=== PATIENT | female | born 1995 | race American Indian/Alaskan Native ===

== ENCOUNTER 2021-04-17 15:21 | Inpatient (IN) | payer MEDICAID ==
[2021-04-17] MEDS ORDERED: OXYTOCIN 10 UNIT/1 ML INJ IM PRN (18:37)
[2021-04-17] MEDS ORDERED: LIDOCAINE (2%) 20 MG/1 ML VIAL 20 ML MDV INFILTRATI ONE (18:37)
[2021-04-17] MEDS ORDERED: LOPERAMIDE 2 MG CAP PO PRN (18:37)
[2021-04-17] MEDS ORDERED: MINERAL OIL 30 ML ORAL LIQD PO PRN (18:37)
[2021-04-17] MEDS ORDERED: miSOPROStol 200 MCG TAB PR PRN (18:37)
[2021-04-17] MEDS ORDERED: CARBOPROST TROMETHAMINE 250 MCG/1 ML INJ IM PRN (18:37)
[2021-04-17] MEDS ORDERED: ePHEDrine SULFATE 50 MG/1 ML INJ IV PRN (18:37)
[2021-04-17] MEDS ORDERED: TERBUTALINE 1 MG/1 ML INJ SUB-Q PRN (18:37)
[2021-04-17] MEDS ORDERED: METHYLERGONOVINE MALEATE 0.2 MG/ML VIAL IM PRN (18:37)
[2021-04-17] MEDS ORDERED: BUTORPHANOL 2 MG/1 ML INJ IV PRN ×2 (18:44)
[2021-04-17] MEDS ORDERED: PROMETHAZINE 25 MG RECT SUPP PR PRN (18:44)
[2021-04-17] MEDS ORDERED: DINOPROSTONE 10 MG VAG SUPP VG ONE (18:44)
[2021-04-17] MEDS ORDERED: ACETAMINOPHEN 325 MG TAB PO PRN (18:44)
[2021-04-17] MEDS ORDERED: ONDANSETRON 4 MG/2 ML INJ IV PRN (18:44)
[2021-04-17] MEDS ORDERED: OXYTOCIN DRIP 30 UNITS/500 ML BAG IV SCH (19:00)
[2021-04-17 19:19] LABS: Hematocrit 34.4 % (30.3-42.9); Hemoglobin 11.2 gm/dl (10.1-14.3); Mean Corpuscular HGB Conc 33 % (30-34); Mean Corpuscular Volume 79 fl (79-97); Platelet Count 234 K/mm3 (140-440); Red Blood Count 4.34 M/mm3 (3.65-5.03); Red Cell Distribution Width 15.4 % (13.2-15.2)
[2021-04-17] MEDS: miSOPROStol 25 MCG TAB PO SCH (21:30)
[2021-04-18] MEDS: miSOPROStol 25 MCG TAB PO SCH ×3 (01:10→09:58)
[2021-04-18] MEDS: miSOPROStol 25 MCG TAB VG SCH ×3 (14:06→23:04)
[2021-04-19] MEDS: miSOPROStol 25 MCG TAB VG SCH (02:00)
[2021-04-19] MEDS: LACTATED RINGERS 1,000 ML IV SCH ×4 (09:37→19:52)
[2021-04-19] MEDS ORDERED: NALOXONE 2 MG/2 ML INJ IV PRN (15:45)
--- NOTE | 2021-04-19 15:45 | Anesthesia Consultation ---
Anesthesia Consult and Med Hx Date of service: 04/19/21 - Airway Anesthetic Teeth Evaluation: Good ROM Head & Neck: Adequate Mental/Hyoid Distance: Adequate Mallampati Class: Class II Intubation Access Assessment: Probably Good - Pulmonary Exam CTA: Yes - Cardiac Exam Cardiac Exam: RRR - Pre-Operative Health Status ASA Pre-Surgery Classification: ASA3 Proposed Anesthetic Plan: Epidural - Pulmonary Hx Asthma: Yes COPD: No Hx Pneumonia: No - Cardiovascular System Hx Hypertension: No - Central Nervous System Hx Seizures: No Hx Psychiatric Problems: No - Endocrine Hx Renal Disease: No Hx End Stage Renal Disease: No Hx Hypothyroidism: No Hx Hyperthyroidism: No - Hematic Hx Anemia: No Hx Sickle Cell Disease: No - Other Systems Hx Alcohol Use: No Hx Obesity: Yes
[2021-04-19] MEDS ORDERED: AMPICILLIN/NS 2 GM/100 ML 2 GM/100 ML BAG IV ONE (17:00)
--- NOTE | 2021-04-19 17:14 | Progress Note ---
Labor Epidural - Labor Epidural Start Time: 17:00 Stop Time: 17:04 Performed by:: DAVID GUZMÁN Procedure: Patient is requesting epidural for labor pain. H&P, and labs reviewed. Procedure explained, questions answered, consent obtained. Patient in sitting position with blood pressure cuff and pulse ox on and working. Timeout performed immediately before start of procedure. Sterile Duraprep prep/drape. 3 mL 1% lidocaine skin wheal at L[3]-L[4]. 17-gauge tuohy epidural needle advanced to [id number] with saline at 9 cm. 25-gauge spinal needle advanced until clear, free-flowing CSF. Intrathecal dexmedetomidine [5] mcg administered and needle removed. Epidural catheter advanced to 15 cm, negative aspiration for blood and csf, negative test dose 3 ml 1.5% lidocaine with epinephrine. Sterile sponge and tegaderm applied, followed by tape reinforcement. Patient tolerated procedure well.
[2021-04-19] MEDS: fentaNYL-BUPIV 2 MCG/ML-0.125% 200 MCG/100 ML BAG EPIDURAL SCH (17:16)
[2021-04-19] MEDS: ePHEDrine SULFATE 50 MG/1 ML INJ IV PRN (17:46)
--- NOTE | 2021-04-19 19:47 | History and Physical Report ---
History of Present Illness Date of examination: 04/17/21 Date of admission: 04/17/21 15:21 Chief complaint: I am here to be induced History of present illness: Patient is a 25-year-old 1 para 0 who presents for induction secondary to morbid obesity at 39-4/7 weeks. Patient was initially scheduled for evening but was rescheduled due to staffing issues. labs are normal. She is GBS positive. Patient was transferred from her women's [facility] at approximately 30 weeks having received previous care in another city. Past History Past Medical History: no pertinent history Past Surgical History: no surgical history Family/Genetic History: none Social history: - Obstetrical History Expected Date of Delivery: 04/19/21 Actual Gestation: 40 Week(s) 0 Day(s) : 1 Number of Living Children: 0 Medications and Allergies Allergies Allergy/AdvReac Type Severity Reaction Status Date / Time No Known Allergies Allergy Verified 04/18/21 09:05 Home Medications Medication Instructions Recorded Confirmed Last Taken Type Ferrous Sulfate [Feosol] 325 mg PO QDAY 04/17/21 04/17/21 04/17/21 12:00 History Pnv,Calcium 72/Iron/Folic Acid 1 each PO DAILY 04/17/21 04/17/21 04/15/21 08:00 History [ Plus Tablet] metroNIDAZOLE [Metronidazole] 500 mg PO QID 04/17/21 04/17/21 04/17/21 09:00 History Active Meds: Active Medications Acetaminophen (Acetaminophen 325 Mg Tab) 650 mg PO Q4H PRN PRN Reason: Pain, Mild (1-3) Butorphanol Tartrate (Butorphanol 2 Mg/1 Ml Inj) 1 mg IV Q2H PRN PRN Reason: Pain, Moderate(4-6) LABOR PAIN Butorphanol Tartrate (Butorphanol 2 Mg/1 Ml Inj) 2 mg IV Q2H PRN PRN Reason: Pain , Severe (7-10) Last Admin: 04/19/21 13:16 Dose: 2 mg Carboprost Tromethamine (Carboprost Tromethamine 250 Mcg/1 Ml Inj) 250 mcg IM ONCE PRN PRN Reason: Uterine Bleeding Ephedrine Sulfate (Ephedrine Sulfate 50 Mg/1 Ml Inj) 10 mg IV Q2M PRN PRN Reason: Hypotension Last Admin: 04/19/21 17:46 Dose: 10 mg Oxytocin/Sodium Chloride (Pitocin/Ns 30 Unit/500ml) 30 units in 500 mls @ 2 mls/hr IV TITR NAVEED; Protocol Last Titration: 04/19/21 17:41 Dose: 0 ml/hr, 0 mls/hr Lactated Ringer's (Lactated Ringers) 1,000 mls @ 125 mls/hr IV DIRECT NAVEED Last Admin: 04/19/21 17:46 Dose: 999 mls/hr Fentanyl/Bupivacaine/Sodium Chlor (Fentanyl-Bupiv 2 Mcg/Ml-0.125%) 200 mcg in 100 mls @ 12 mls/hr EPIDURAL TITR NAVEED; Protocol Last Admin: 04/19/21 17:16 Dose: 12 mls/hr Ampicillin Sodium (Ampicillin/Ns 1 Gm/50 Ml) 1 gm in 50 mls @ 100 mls/hr IV Q4H NAVEED; Protocol Loperamide HCl (Loperamide 2 Mg Cap) 2 mg PO ONCE PRN PRN Reason: give with Hemabate Methylergonovine Maleate (Methylergonovine Maleate 0.2 Mg/Ml Vial) 0.2 mg IM ONCE PRN PRN Reason: Uterine Bleeding Mineral Oil (Mineral Oil 30 Ml Oral Liqd) 30 ml PO QHS PRN PRN Reason: Constipation Misoprostol (Misoprostol 200 Mcg Tab) 800 mcg ID ONCE PRN PRN Reason: Uterine Bleeding Naloxone HCl (Naloxone 2 Mg/2 Ml Inj) 0.2 mg IV Q5M PRN PRN Reason: Respiratory sedation Ondansetron HCl (Ondansetron 4 Mg/2 Ml Inj) 4 mg IV Q8H PRN PRN Reason: Nausea And Vomiting Oxytocin (Oxytocin 10 Unit/1 Ml Inj) 10 unit IM ONCE PRN PRN Reason: Uterine Bleeding Promethazine HCl (Promethazine 25 Mg Rect Supp) 25 mg ID Q6H PRN PRN Reason: N/V if unable to take po Terbutaline Sulfate (Terbutaline 1 Mg/1 Ml Inj) 0.25 mg SUB-Q ONCE PRN PRN Reason: Hyperstimulation/Hypertonicity Review of Systems All systems: negative Genitourinary: pelvic pain - Vital Signs Vital signs: Vital Signs Pulse BP 96 H 109/65 04/17/21 17:20 04/17/21 17:20 Temp Pulse Resp BP Pulse Ox 98.2 F 51 L 20 112/74 100 04/19/21 19:08 04/19/21 19:42 04/19/21 12:00 04/19/21 19:42 04/19/21 19:40 - Physical Exam Breasts: Positive: deferred Cardiovascular: Regular rate, Normal S1, Normal S2 Lungs: Positive: Clear to auscultation, Normal air movement Abdomen: Positive: normal appearance, soft, normal bowel sounds Genitourinary (Female): Positive: normal external genitalia, normal perenium Vagina: Positive: normal moisture Uterus: Positive: normal size - Obstetrical FHR: auscultation normal Uterine Contraction Monitor Mode: External Cervical Dilatation: 0 Cervical Effacement Percentage: 0 station: -3 Uterine Contraction Pattern: Absent Results Result Diagrams: 04/17/21 18:05 All other labs normal. Assessment and Plan IUP at 39-4/7 weeks here for induction of labor secondary to obesity. Cervix is not favorable. We will proceed with Cervidil. We will start antibiotics for GBS prophylaxis when in active labor. Anticipate .
--- NOTE | 2021-04-19 19:48 | Event Note ---
Date: 04/17/21 Received a call from nursing staff stating that Cervidil was not available in the pharmacy. In its place, we will begin with Cytotec every 4 hours.
--- NOTE | 2021-04-19 19:50 | Progress Note ---
Assessment and Plan Day 1 of induction less than 24 hours have passed to this point. Patient is having some mild contractions occasionally, and has received her first dose of Cytotec intravaginally. We will continue with induction process. answered questions for patient and her . Subjective - Subjective Date of service: 04/18/21 Interval history: Patient is a 25-year-old 1 para 0 who presents for induction secondary to morbid obesity at 39-4/7 weeks. Patient was initially scheduled for evening but was rescheduled due to staffing issues. labs are normal. She is GBS positive. Patient was transferred from her women's [facility] at approximately 30 weeks having received previous care in another city. Per dayshift nursing staff, the previous medicine been giving the patient Cytotec orally although that was not how it was intended to be given. We will now convert to Cytotec intravaginally to continue induction process. Patient reports: movement normal, contractions Objective - Vital Signs Vital Signs: Vital Signs - 12hr 04/19/21 04/19/21 04/19/21 07:50 07:55 08:00 Temperature Pulse Rate 59 L 62 56 L Respiratory Rate Blood Pressure O2 Sat by Pulse 99 99 100 Oximetry O2 Sat by Pulse Oximetry [ Bilateral Throughout] 04/19/21 04/19/21 04/19/21 08:05 08:10 08:15 Temperature Pulse Rate 62 80 71 Respiratory Rate Blood Pressure O2 Sat by Pulse 100 99 97 Oximetry O2 Sat by Pulse Oximetry [ Bilateral Throughout] 04/19/21 04/19/21 04/19/21 08:20 08:22 08:25 Temperature Pulse Rate 89 86 60 Respiratory Rate Blood Pressure O2 Sat by Pulse 99 94 100 Oximetry O2 Sat by Pulse Oximetry [ Bilateral Throughout] 04/19/21 04/19/21 04/19/21 08:29 08:30 08:35 Temperature Pulse Rate 79 78 73 Respiratory Rate Blood Pressure O2 Sat by Pulse 90 100 100 Oximetry O2 Sat by Pulse Oximetry [ Bilateral Throughout] 04/19/21 04/19/21 04/19/21 08:40 08:45 08:50 Temperature Pulse Rate 60 81 58 L Respiratory Rate Blood Pressure O2 Sat by Pulse 100 100 100 Oximetry O2 Sat by Pulse Oximetry [ Bilateral Throughout] 04/19/21 04/19/21 04/19/21 08:55 09:01 09:06 Temperature Pulse Rate 74 148 H 59 L Respiratory Rate Blood Pressure O2 Sat by Pulse 100 98 100 Oximetry O2 Sat by Pulse Oximetry [ Bilateral Throughout] 04/19/21 04/19/21 04/19/21 09:11 09:16 09:21 Temperature Pulse Rate 76 57 L 64 Respiratory Rate Blood Pressure O2 Sat by Pulse 100 100 100 Oximetry O2 Sat by Pulse Oximetry [ Bilateral Throughout] 04/19/21 04/19/21 04/19/21 09:26 09:29 09:31 Temperature Pulse Rate 71 54 L 66 Respiratory Rate Blood Pressure O2 Sat by Pulse 96 91 100 Oximetry O2 Sat by Pulse Oximetry [ Bilateral Throughout] 04/19/21 04/19/21 04/19/21 09:36 09:41 09:45 Temperature Pulse Rate 64 66 70 Respiratory Rate Blood Pressure O2 Sat by Pulse 100 100 76 L Oximetry O2 Sat by Pulse Oximetry [ Bilateral Throughout] 04/19/21 04/19/21 04/19/21 09:46 09:51 09:56 Temperature Pulse Rate 60 82 63 Respiratory Rate Blood Pressure 117/74 O2 Sat by Pulse 100 100 100 Oximetry O2 Sat by Pulse Oximetry [ Bilateral Throughout] 04/19/21 04/19/21 04/19/21 10:01 10:06 10:11 Temperature Pulse Rate 54 L 59 L 64 Respiratory Rate Blood Pressure O2 Sat by Pulse 100 98 100 Oximetry O2 Sat by Pulse Oximetry [ Bilateral Throughout] 04/19/21 04/19/21 04/19/21 10:16 10:21 10:23 Temperature Pulse Rate 53 L 62 62 Respiratory Rate Blood Pressure 126/76 O2 Sat by Pulse 100 99 Oximetry O2 Sat by Pulse Oximetry [ Bilateral Throughout] 04/19/21 04/19/21 04/19/21 10:26 10:31 10:36 Temperature Pulse Rate 53 L 53 L 63 Respiratory Rate Blood Pressure O2 Sat by Pulse 100 99 99 Oximetry O2 Sat by Pulse Oximetry [ Bilateral Throughout] 04/19/21 04/19/21 04/19/21 10:41 10:46 10:51 Temperature Pulse Rate 62 56 L 60 Respiratory Rate Blood Pressure O2 Sat by Pulse 100 100 100 Oximetry O2 Sat by Pulse Oximetry [ Bilateral Throughout] 04/19/21 04/19/21 04/19/21 10:53 10:54 10:56 Temperature Pulse Rate 57 L 56 L 55 L Respiratory Rate Blood Pressure 126/78 O2 Sat by Pulse 87 100 Oximetry O2 Sat by Pulse Oximetry [ Bilateral Throughout] 04/19/21 04/19/21 04/19/21 10:59 11:01 11:06 Temperature Pulse Rate 68 56 L 67 Respiratory Rate Blood Pressure O2 Sat by Pulse 92 100 100 Oximetry O2 Sat by Pulse Oximetry [ Bilateral Throughout] 04/19/21 04/19/21 04/19/21 11:10 11:11 11:16 Temperature Pulse Rate 60 59 L 51 L Respiratory Rate Blood Pressure O2 Sat by Pulse 94 100 100 Oximetry O2 Sat by Pulse Oximetry [ Bilateral Throughout] 04/19/21 04/19/21 04/19/21 11:21 11:34 11:35 Temperature Pulse Rate 57 L 66 53 L Respiratory Rate Blood Pressure 120/76 O2 Sat by Pulse 100 82 L Oximetry O2 Sat by Pulse Oximetry [ Bilateral Throughout] 04/19/21 04/19/21 04/19/21 11:39 11:44 11:49 Temperature Pulse Rate 55 L 63 63 Respiratory Rate Blood Pressure O2 Sat by Pulse 99 100 100 Oximetry O2 Sat by Pulse Oximetry [ Bilateral Throughout] 04/19/21 04/19/21 04/19/21 11:54 11:57 11:59 Temperature Pulse Rate 57 L 59 L 55 L Respiratory Rate Blood Pressure 110/58 O2 Sat by Pulse 100 90 100 Oximetry O2 Sat by Pulse Oximetry [ Bilateral Throughout] 04/19/21 04/19/21 04/19/21 12:00 12:04 12:09 Temperature 98.5 F Pulse Rate 57 L 57 L Respiratory 20 Rate Blood Pressure O2 Sat by Pulse 100 100 100 Oximetry O2 Sat by Pulse Oximetry [ Bilateral Throughout] 04/19/21 04/19/21 04/19/21 12:14 12:19 12:21 Temperature Pulse Rate 56 L 84 50 L Respiratory Rate Blood Pressure 122/82 O2 Sat by Pulse 100 98 Oximetry O2 Sat by Pulse Oximetry [ Bilateral Throughout] 04/19/21 04/19/21 04/19/21 12:49 12:50 12:54 Temperature Pulse Rate 64 89 58 L Respiratory Rate Blood Pressure O2 Sat by Pulse 100 91 100 Oximetry O2 Sat by Pulse Oximetry [ Bilateral Throughout] 04/19/21 04/19/21 04/19/21 12:59 13:04 13:09 Temperature Pulse Rate 62 53 L 51 L Respiratory Rate Blood Pressure O2 Sat by Pulse 100 100 100 Oximetry O2 Sat by Pulse Oximetry [ Bilateral Throughout] 04/19/21 04/19/21 04/19/21 13:10 13:14 13:19 Temperature Pulse Rate 67 71 55 L Respiratory Rate Blood Pressure O2 Sat by Pulse 76 L 100 100 Oximetry O2 Sat by Pulse Oximetry [ Bilateral Throughout] 04/19/21 04/19/21 04/19/21 13:22 13:24 13:29 Temperature Pulse Rate 51 L 56 L 56 L Respiratory Rate Blood Pressure 101/63 O2 Sat by Pulse 100 100 Oximetry O2 Sat by Pulse Oximetry [ Bilateral Throughout] 04/19/21 04/19/21 04/19/21 13:34 13:39 13:44 Temperature Pulse Rate 69 54 L 100 H Respiratory Rate Blood Pressure O2 Sat by Pulse 100 99 99 Oximetry O2 Sat by Pulse Oximetry [ Bilateral Throughout] 04/19/21 04/19/21 04/19/21 13:46 13:49 13:51 Temperature Pulse Rate 56 L 56 L 55 L Respiratory Rate Blood Pressure 101/61 101/61 O2 Sat by Pulse 99 Oximetry O2 Sat by Pulse Oximetry [ Bilateral Throughout] 04/19/21 04/19/21 04/19/21 13:54 13:59 14:04 Temperature Pulse Rate 56 L 57 L 57 L Respiratory Rate Blood Pressure O2 Sat by Pulse 99 99 99 Oximetry O2 Sat by Pulse Oximetry [ Bilateral Throughout] 04/19/21 04/19/21 04/19/21 14:09 14:14 14:19 Temperature Pulse Rate 58 L 58 L 75 Respiratory Rate Blood Pressure O2 Sat by Pulse 100 100 97 Oximetry O2 Sat by Pulse Oximetry [ Bilateral Throughout] 04/19/21 04/19/21 04/19/21 14:22 14:24 14:29 Temperature Pulse Rate 64 54 L 88 Respiratory Rate Blood Pressure 93/58 O2 Sat by Pulse 100 100 Oximetry O2 Sat by Pulse Oximetry [ Bilateral Throughout] 04/19/21 04/19/21 04/19/21 14:34 14:39 14:44 Temperature Pulse Rate 77 52 L 58 L Respiratory Rate Blood Pressure O2 Sat by Pulse 99 100 100 Oximetry O2 Sat by Pulse Oximetry [ Bilateral Throughout] 04/19/21 04/19/21 04/19/21 14:49 14:52 14:54 Temperature Pulse Rate 55 L 49 L 97 H Respiratory Rate Blood Pressure 107/67 O2 Sat by Pulse 100 100 Oximetry O2 Sat by Pulse Oximetry [ Bilateral Throughout] 04/19/21 04/19/21 04/19/21 14:57 14:59 15:04 Temperature Pulse Rate 69 69 54 L Respiratory Rate Blood Pressure O2 Sat by Pulse 91 87 100 Oximetry O2 Sat by Pulse Oximetry [ Bilateral Throughout] 04/19/21 04/19/21 04/19/21 15:09 15:10 15:15 Temperature Pulse Rate 51 L 100 H Respiratory Rate Blood Pressure O2 Sat by Pulse 72 L 100 100 Oximetry O2 Sat by Pulse Oximetry [ Bilateral Throughout] 04/19/21 04/19/21 04/19/21 15:26 15:31 15:36 Temperature Pulse Rate 54 L 63 59 L Respiratory Rate Blood Pressure O2 Sat by Pulse 86 100 100 Oximetry O2 Sat by Pulse Oximetry [ Bilateral Throughout] 04/19/21 04/19/21 04/19/21 15:41 15:46 15:49 Temperature Pulse Rate 85 71 52 L Respiratory Rate Blood Pressure 116/78 O2 Sat by Pulse 98 100 66 L Oximetry O2 Sat by Pulse Oximetry [ Bilateral Throughout] 04/19/21 04/19/21 04/19/21 15:51 15:53 15:56 Temperature Pulse Rate 64 64 86 Respiratory Rate Blood Pressure 123/75 O2 Sat by Pulse 100 93 Oximetry O2 Sat by Pulse Oximetry [ Bilateral Throughout] 04/19/21 04/19/21 04/19/21 16:01 16:02 16:06 Temperature Pulse Rate 65 68 92 H Respiratory Rate Blood Pressure O2 Sat by Pulse 96 94 94 Oximetry O2 Sat by Pulse Oximetry [ Bilateral Throughout] 04/19/21 04/19/21 04/19/21 16:11 16:16 16:21 Temperature Pulse Rate 102 H 56 L 97 H Respiratory Rate Blood Pressure O2 Sat by Pulse 100 100 100 Oximetry O2 Sat by Pulse Oximetry [ Bilateral Throughout] 04/19/21 04/19/21 04/19/21 16:22 16:26 16:28 Temperature Pulse Rate 77 69 78 Respiratory Rate Blood Pressure 95/71 O2 Sat by Pulse 86 100 81 L Oximetry O2 Sat by Pulse Oximetry [ Bilateral Throughout] 04/19/21 04/19/21 04/19/21 16:31 17:00 17:05 Temperature Pulse Rate 74 54 L 65 Respiratory Rate Blood Pressure 105/63 O2 Sat by Pulse 100 100 100 Oximetry O2 Sat by Pulse Oximetry [ Bilateral Throughout] 04/19/21 04/19/21 04/19/21 17:06 17:09 17:10 Temperature Pulse Rate 69 77 63 Respiratory Rate Blood Pressure 119/66 97/55 O2 Sat by Pulse 100 Oximetry O2 Sat by Pulse Oximetry [ Bilateral Throughout] 04/19/21 04/19/21 04/19/21 17:11 17:13 17:15 Temperature Pulse Rate 60 63 65 Respiratory Rate Blood Pressure 102/60 105/62 102/59 O2 Sat by Pulse 100 Oximetry O2 Sat by Pulse Oximetry [ Bilateral Throughout] 04/19/21 04/19/21 04/19/21 17:17 17:19 17:20 Temperature Pulse Rate 65 68 64 Respiratory Rate Blood Pressure 98/54 101/55 O2 Sat by Pulse 99 Oximetry O2 Sat by Pulse Oximetry [ Bilateral Throughout] 04/19/21 04/19/21 04/19/21 17:21 17:23 17:25 Temperature Pulse Rate 68 64 63 Respiratory Rate Blood Pressure 103/58 99/54 102/57 O2 Sat by Pulse 99 Oximetry O2 Sat by Pulse Oximetry [ Bilateral Throughout] 04/19/21 04/19/21 04/19/21 17:27 17:29 17:30 Temperature Pulse Rate 62 66 60 Respiratory Rate Blood Pressure 103/57 102/57 O2 Sat by Pulse 99 Oximetry O2 Sat by Pulse Oximetry [ Bilateral Throughout] 04/19/21 04/19/21 04/19/21 17:31 17:33 17:35 Temperature Pulse Rate 61 69 60 Respiratory Rate Blood Pressure 104/59 102/59 100/56 O2 Sat by Pulse 99 Oximetry O2 Sat by Pulse Oximetry [ Bilateral Throughout] 04/19/21 04/19/21 04/19/21 17:37 17:39 17:40 Temperature Pulse Rate 61 75 71 Respiratory Rate Blood Pressure 103/56 109/65 O2 Sat by Pulse 99 Oximetry O2 Sat by Pulse Oximetry [ Bilateral Throughout] 04/19/21 04/19/21 04/19/21 17:41 17:43 17:45 Temperature Pulse Rate 83 61 56 L Respiratory Rate Blood Pressure 100/56 94/50 94/50 O2 Sat by Pulse 100 Oximetry O2 Sat by Pulse Oximetry [ Bilateral Throughout] 04/19/21 04/19/21 04/19/21 17:47 17:49 17:50 Temperature Pulse Rate 79 64 59 L Respiratory Rate Blood Pressure 93/54 110/58 O2 Sat by Pulse 100 Oximetry O2 Sat by Pulse Oximetry [ Bilateral Throughout] 04/19/21 04/19/21 04/19/21 17:51 17:53 17:55 Temperature Pulse Rate 65 56 L 57 L Respiratory Rate Blood Pressure 114/58 123/76 130/76 O2 Sat by Pulse 100 Oximetry O2 Sat by Pulse Oximetry [ Bilateral Throughout] 04/19/21 04/19/21 04/19/21 17:57 18:00 18:03 Temperature Pulse Rate 53 L 61 57 L Respiratory Rate Blood Pressure 118/74 110/59 O2 Sat by Pulse 100 Oximetry O2 Sat by Pulse Oximetry [ Bilateral Throughout] 04/19/21 04/19/21 04/19/21 18:05 18:08 18:10 Temperature Pulse Rate 58 L 52 L 58 L Respiratory Rate Blood Pressure 109/59 O2 Sat by Pulse 100 100 Oximetry O2 Sat by Pulse Oximetry [ Bilateral Throughout] 04/19/21 04/19/21 04/19/21 18:13 18:15 18:18 Temperature Pulse Rate 51 L 56 L 53 L Respiratory Rate Blood Pressure 103/56 102/57 O2 Sat by Pulse 100 Oximetry O2 Sat by Pulse Oximetry [ Bilateral Throughout] 04/19/21 04/19/21 04/19/21 18:20 18:25 18:30 Temperature Pulse Rate 55 L 78 71 Respiratory Rate Blood Pressure O2 Sat by Pulse 99 100 100 Oximetry O2 Sat by Pulse Oximetry [ Bilateral Throughout] 04/19/21 04/19/21 04/19/21 18:34 18:35 18:40 Temperature Pulse Rate 54 L 50 L 56 L Respiratory Rate Blood Pressure 108/59 O2 Sat by Pulse 100 100 Oximetry O2 Sat by Pulse Oximetry [ Bilateral Throughout] 04/19/21 04/19/21 04/19/21 18:42 18:45 18:50 Temperature Pulse Rate 75 62 53 L Respiratory Rate Blood Pressure 97/54 O2 Sat by Pulse 71 L 99 Oximetry O2 Sat by Pulse Oximetry [ Bilateral Throughout] 04/19/21 04/19/21 04/19/21 18:52 18:55 18:57 Temperature Pulse Rate 46 L 48 L 57 L Respiratory Rate Blood Pressure 134/78 O2 Sat by Pulse 87 81 L Oximetry O2 Sat by Pulse Oximetry [ Bilateral Throughout] 04/19/21 04/19/21 04/19/21 19:00 19:02 19:05 Temperature Pulse Rate 54 L 49 L 47 L Respiratory Rate Blood Pressure 127/68 O2 Sat by Pulse 92 99 Oximetry O2 Sat by Pulse Oximetry [ Bilateral Throughout] 04/19/21 04/19/21 04/19/21 19:08 19:10 19:11 Temperature 98.2 F Pulse Rate 80 Respiratory Rate Blood Pressure O2 Sat by Pulse 100 Oximetry O2 Sat by Pulse 100 Oximetry [ Bilateral Throughout] 04/19/21 04/19/21 04/19/21 19:13 19:15 19:20 Temperature Pulse Rate 51 L 60 72 Respiratory Rate Blood Pressure 121/79 O2 Sat by Pulse 94 100 100 Oximetry O2 Sat by Pulse Oximetry [ Bilateral Throughout] 04/19/21 04/19/21 04/19/21 19:23 19:25 19:30 Temperature Pulse Rate 52 L 48 L 49 L Respiratory Rate Blood Pressure 122/78 O2 Sat by Pulse 100 100 Oximetry O2 Sat by Pulse Oximetry [ Bilateral Throughout] 04/19/21 04/19/21 04/19/21 19:32 19:35 19:40 Temperature Pulse Rate 85 50 L 56 L Respiratory Rate Blood Pressure 113/78 O2 Sat by Pulse 91 100 Oximetry O2 Sat by Pulse Oximetry [ Bilateral Throughout] 04/19/21 04/19/21 19:42 19:45 Temperature Pulse Rate 51 L 56 L Respiratory Rate Blood Pressure 112/74 O2 Sat by Pulse 100 Oximetry O2 Sat by Pulse Oximetry [ Bilateral Throughout] - Exam Breasts: deferred Cardiovascular: Regular rate, Normal S1, Normal S2 Lungs: Clear to auscultation, Normal air movement Abdomen: Present: normal appearance, soft, normal bowel sounds Uterus: Present: normal, bogginess Cervical Dilatation: 0 Cervical Effacement Percentage: 0 station: -3 - Labs Labs: Abnormal Labs 04/17/21 18:05 MCH 26 L RDW 15.4 H
[2021-04-19] MEDS: AMPICILLIN/NS 1 GM/50 ML 1 GM/50 ML BAG IV SCH ×2 (19:53→23:50)
--- NOTE | 2021-04-19 19:53 | Progress Note ---
Assessment and Plan Day 2 of induction for this 1 for morbid obesity. This a.m. patient was 1 cm dilated and 40% effaced at which time Pitocin was started. We will now begin ampicillin for GBS prophylaxis. Continue induction process. Anticipate . Subjective - Subjective Date of service: 04/19/21 Interval history: Patient is a 25-year-old 1 para 0 who presents for induction secondary to morbid obesity at 39-4/7 weeks. Patient was initially scheduled for evening but was rescheduled due to staffing issues. labs are normal. She is GBS positive. Patient was transferred from her [facility] at approximately 30 weeks having received previous care in another city. Per dayshift nursing staff, the previous medicine been giving the patient Cytotec orally although that was not how it was intended to be given. We will now convert to Cytotec intravaginally to continue induction process. Patient reports: movement normal, contractions Objective - Vital Signs Vital Signs: Vital Signs - 12hr 04/19/21 04/19/21 04/19/21 07:55 08:00 08:05 Temperature Pulse Rate 62 56 L 62 Respiratory Rate Blood Pressure O2 Sat by Pulse 99 100 100 Oximetry O2 Sat by Pulse Oximetry [ Bilateral Throughout] 04/19/21 04/19/21 04/19/21 08:10 08:15 08:20 Temperature Pulse Rate 80 71 89 Respiratory Rate Blood Pressure O2 Sat by Pulse 99 97 99 Oximetry O2 Sat by Pulse Oximetry [ Bilateral Throughout] 04/19/21 04/19/21 04/19/21 08:22 08:25 08:29 Temperature Pulse Rate 86 60 79 Respiratory Rate Blood Pressure O2 Sat by Pulse 94 100 90 Oximetry O2 Sat by Pulse Oximetry [ Bilateral Throughout] 04/19/21 04/19/21 04/19/21 08:30 08:35 08:40 Temperature Pulse Rate 78 73 60 Respiratory Rate Blood Pressure O2 Sat by Pulse 100 100 100 Oximetry O2 Sat by Pulse Oximetry [ Bilateral Throughout] 04/19/21 04/19/21 04/19/21 08:45 08:50 08:55 Temperature Pulse Rate 81 58 L 74 Respiratory Rate Blood Pressure O2 Sat by Pulse 100 100 100 Oximetry O2 Sat by Pulse Oximetry [ Bilateral Throughout] 04/19/21 04/19/21 04/19/21 09:01 09:06 09:11 Temperature Pulse Rate 148 H 59 L 76 Respiratory Rate Blood Pressure O2 Sat by Pulse 98 100 100 Oximetry O2 Sat by Pulse Oximetry [ Bilateral Throughout] 04/19/21 04/19/21 04/19/21 09:16 09:21 09:26 Temperature Pulse Rate 57 L 64 71 Respiratory Rate Blood Pressure O2 Sat by Pulse 100 100 96 Oximetry O2 Sat by Pulse Oximetry [ Bilateral Throughout] 04/19/21 04/19/21 04/19/21 09:29 09:31 09:36 Temperature Pulse Rate 54 L 66 64 Respiratory Rate Blood Pressure O2 Sat by Pulse 91 100 100 Oximetry O2 Sat by Pulse Oximetry [ Bilateral Throughout] 04/19/21 04/19/21 04/19/21 09:41 09:45 09:46 Temperature Pulse Rate 66 70 60 Respiratory Rate Blood Pressure O2 Sat by Pulse 100 76 L 100 Oximetry O2 Sat by Pulse Oximetry [ Bilateral Throughout] 04/19/21 04/19/21 04/19/21 09:51 09:56 10:01 Temperature Pulse Rate 82 63 54 L Respiratory Rate Blood Pressure 117/74 O2 Sat by Pulse 100 100 100 Oximetry O2 Sat by Pulse Oximetry [ Bilateral Throughout] 04/19/21 04/19/21 04/19/21 10:06 10:11 10:16 Temperature Pulse Rate 59 L 64 53 L Respiratory Rate Blood Pressure O2 Sat by Pulse 98 100 100 Oximetry O2 Sat by Pulse Oximetry [ Bilateral Throughout] 04/19/21 04/19/21 04/19/21 10:21 10:23 10:26 Temperature Pulse Rate 62 62 53 L Respiratory Rate Blood Pressure 126/76 O2 Sat by Pulse 99 100 Oximetry O2 Sat by Pulse Oximetry [ Bilateral Throughout] 04/19/21 04/19/21 04/19/21 10:31 10:36 10:41 Temperature Pulse Rate 53 L 63 62 Respiratory Rate Blood Pressure O2 Sat by Pulse 99 99 100 Oximetry O2 Sat by Pulse Oximetry [ Bilateral Throughout] 04/19/21 04/19/21 04/19/21 10:46 10:51 10:53 Temperature Pulse Rate 56 L 60 57 L Respiratory Rate Blood Pressure 126/78 O2 Sat by Pulse 100 100 Oximetry O2 Sat by Pulse Oximetry [ Bilateral Throughout] 04/19/21 04/19/21 04/19/21 10:54 10:56 10:59 Temperature Pulse Rate 56 L 55 L 68 Respiratory Rate Blood Pressure O2 Sat by Pulse 87 100 92 Oximetry O2 Sat by Pulse Oximetry [ Bilateral Throughout] 04/19/21 04/19/21 04/19/21 11:01 11:06 11:10 Temperature Pulse Rate 56 L 67 60 Respiratory Rate Blood Pressure O2 Sat by Pulse 100 100 94 Oximetry O2 Sat by Pulse Oximetry [ Bilateral Throughout] 04/19/21 04/19/21 04/19/21 11:11 11:16 11:21 Temperature Pulse Rate 59 L 51 L 57 L Respiratory Rate Blood Pressure O2 Sat by Pulse 100 100 100 Oximetry O2 Sat by Pulse Oximetry [ Bilateral Throughout] 04/19/21 04/19/21 04/19/21 11:34 11:35 11:39 Temperature Pulse Rate 66 53 L 55 L Respiratory Rate Blood Pressure 120/76 O2 Sat by Pulse 82 L 99 Oximetry O2 Sat by Pulse Oximetry [ Bilateral Throughout] 04/19/21 04/19/21 04/19/21 11:44 11:49 11:54 Temperature Pulse Rate 63 63 57 L Respiratory Rate Blood Pressure 110/58 O2 Sat by Pulse 100 100 100 Oximetry O2 Sat by Pulse Oximetry [ Bilateral Throughout] 04/19/21 04/19/21 04/19/21 11:57 11:59 12:00 Temperature 98.5 F Pulse Rate 59 L 55 L Respiratory 20 Rate Blood Pressure O2 Sat by Pulse 90 100 100 Oximetry O2 Sat by Pulse Oximetry [ Bilateral Throughout] 04/19/21 04/19/21 04/19/21 12:04 12:09 12:14 Temperature Pulse Rate 57 L 57 L 56 L Respiratory Rate Blood Pressure O2 Sat by Pulse 100 100 100 Oximetry O2 Sat by Pulse Oximetry [ Bilateral Throughout] 04/19/21 04/19/21 04/19/21 12:19 12:21 12:49 Temperature Pulse Rate 84 50 L 64 Respiratory Rate Blood Pressure 122/82 O2 Sat by Pulse 98 100 Oximetry O2 Sat by Pulse Oximetry [ Bilateral Throughout] 04/19/21 04/19/21 04/19/21 12:50 12:54 12:59 Temperature Pulse Rate 89 58 L 62 Respiratory Rate Blood Pressure O2 Sat by Pulse 91 100 100 Oximetry O2 Sat by Pulse Oximetry [ Bilateral Throughout] 02/06/22 02/06/22 02/06/22 13:04 13:09 13:10 Temperature Pulse Rate 53 L 51 L 67 Respiratory Rate Blood Pressure O2 Sat by Pulse 100 100 76 L Oximetry O2 Sat by Pulse Oximetry [ Bilateral Throughout] 04/19/21 04/19/21 04/19/21 13:14 13:19 13:22 Temperature Pulse Rate 71 55 L 51 L Respiratory Rate Blood Pressure 101/63 O2 Sat by Pulse 100 100 Oximetry O2 Sat by Pulse Oximetry [ Bilateral Throughout] 04/19/21 04/19/21 04/19/21 13:24 13:29 13:34 Temperature Pulse Rate 56 L 56 L 69 Respiratory Rate Blood Pressure O2 Sat by Pulse 100 100 100 Oximetry O2 Sat by Pulse Oximetry [ Bilateral Throughout] 04/19/21 04/19/21 04/19/21 13:39 13:44 13:46 Temperature Pulse Rate 54 L 100 H 56 L Respiratory Rate Blood Pressure 101/61 O2 Sat by Pulse 99 99 Oximetry O2 Sat by Pulse Oximetry [ Bilateral Throughout] 04/19/21 04/19/21 04/19/21 13:49 13:51 13:54 Temperature Pulse Rate 56 L 55 L 56 L Respiratory Rate Blood Pressure 101/61 O2 Sat by Pulse 99 99 Oximetry O2 Sat by Pulse Oximetry [ Bilateral Throughout] 04/19/21 04/19/21 04/19/21 13:59 14:04 14:09 Temperature Pulse Rate 57 L 57 L 58 L Respiratory Rate Blood Pressure O2 Sat by Pulse 99 99 100 Oximetry O2 Sat by Pulse Oximetry [ Bilateral Throughout] 04/19/21 04/19/21 04/19/21 14:14 14:19 14:22 Temperature Pulse Rate 58 L 75 64 Respiratory Rate Blood Pressure 93/58 O2 Sat by Pulse 100 97 Oximetry O2 Sat by Pulse Oximetry [ Bilateral Throughout] 04/19/21 04/19/21 04/19/21 14:24 14:29 14:34 Temperature Pulse Rate 54 L 88 77 Respiratory Rate Blood Pressure O2 Sat by Pulse 100 100 99 Oximetry O2 Sat by Pulse Oximetry [ Bilateral Throughout] 04/19/21 04/19/21 04/19/21 14:39 14:44 14:49 Temperature Pulse Rate 52 L 58 L 55 L Respiratory Rate Blood Pressure O2 Sat by Pulse 100 100 100 Oximetry O2 Sat by Pulse Oximetry [ Bilateral Throughout] 04/19/21 04/19/21 04/19/21 14:52 14:54 14:57 Temperature Pulse Rate 49 L 97 H 69 Respiratory Rate Blood Pressure 107/67 O2 Sat by Pulse 100 91 Oximetry O2 Sat by Pulse Oximetry [ Bilateral Throughout] 04/19/21 04/19/21 04/19/21 14:59 15:04 15:09 Temperature Pulse Rate 69 54 L Respiratory Rate Blood Pressure O2 Sat by Pulse 87 100 72 L Oximetry O2 Sat by Pulse Oximetry [ Bilateral Throughout] 04/19/21 04/19/21 04/19/21 15:10 15:15 15:26 Temperature Pulse Rate 51 L 100 H 54 L Respiratory Rate Blood Pressure O2 Sat by Pulse 100 100 86 Oximetry O2 Sat by Pulse Oximetry [ Bilateral Throughout] 04/19/21 04/19/21 04/19/21 15:31 15:36 15:41 Temperature Pulse Rate 63 59 L 85 Respiratory Rate Blood Pressure O2 Sat by Pulse 100 100 98 Oximetry O2 Sat by Pulse Oximetry [ Bilateral Throughout] 04/19/21 04/19/21 04/19/21 15:46 15:49 15:51 Temperature Pulse Rate 71 52 L 64 Respiratory Rate Blood Pressure 116/78 O2 Sat by Pulse 100 66 L 100 Oximetry O2 Sat by Pulse Oximetry [ Bilateral Throughout] 04/19/21 04/19/21 04/19/21 15:53 15:56 16:01 Temperature Pulse Rate 64 86 65 Respiratory Rate Blood Pressure 123/75 O2 Sat by Pulse 93 96 Oximetry O2 Sat by Pulse Oximetry [ Bilateral Throughout] 04/19/21 04/19/21 04/19/21 16:02 16:06 16:11 Temperature Pulse Rate 68 92 H 102 H Respiratory Rate Blood Pressure O2 Sat by Pulse 94 94 100 Oximetry O2 Sat by Pulse Oximetry [ Bilateral Throughout] 04/19/21 04/19/21 04/19/21 16:16 16:21 16:22 Temperature Pulse Rate 56 L 97 H 77 Respiratory Rate Blood Pressure O2 Sat by Pulse 100 100 86 Oximetry O2 Sat by Pulse Oximetry [ Bilateral Throughout] 04/19/21 04/19/21 04/19/21 16:26 16:28 16:31 Temperature Pulse Rate 69 78 74 Respiratory Rate Blood Pressure 95/71 O2 Sat by Pulse 100 81 L 100 Oximetry O2 Sat by Pulse Oximetry [ Bilateral Throughout] 04/19/21 04/19/21 04/19/21 17:00 17:05 17:06 Temperature Pulse Rate 54 L 65 69 Respiratory Rate Blood Pressure 105/63 119/66 O2 Sat by Pulse 100 100 Oximetry O2 Sat by Pulse Oximetry [ Bilateral Throughout] 04/19/21 04/19/21 04/19/21 17:09 17:10 17:11 Temperature Pulse Rate 77 63 60 Respiratory Rate Blood Pressure 97/55 102/60 O2 Sat by Pulse 100 Oximetry O2 Sat by Pulse Oximetry [ Bilateral Throughout] 04/19/21 04/19/21 04/19/21 17:13 17:15 17:17 Temperature Pulse Rate 63 65 65 Respiratory Rate Blood Pressure 105/62 102/59 98/54 O2 Sat by Pulse 100 Oximetry O2 Sat by Pulse Oximetry [ Bilateral Throughout] 04/19/21 04/19/21 04/19/21 17:19 17:20 17:21 Temperature Pulse Rate 68 64 68 Respiratory Rate Blood Pressure 101/55 103/58 O2 Sat by Pulse 99 Oximetry O2 Sat by Pulse Oximetry [ Bilateral Throughout] 04/19/21 04/19/21 04/19/21 17:23 17:25 17:27 Temperature Pulse Rate 64 63 62 Respiratory Rate Blood Pressure 99/54 102/57 103/57 O2 Sat by Pulse 99 Oximetry O2 Sat by Pulse Oximetry [ Bilateral Throughout] 04/19/21 04/19/21 04/19/21 17:29 17:30 17:31 Temperature Pulse Rate 66 60 61 Respiratory Rate Blood Pressure 102/57 104/59 O2 Sat by Pulse 99 Oximetry O2 Sat by Pulse Oximetry [ Bilateral Throughout] 04/19/21 04/19/21 04/19/21 17:33 17:35 17:37 Temperature Pulse Rate 69 60 61 Respiratory Rate Blood Pressure 102/59 100/56 103/56 O2 Sat by Pulse 99 Oximetry O2 Sat by Pulse Oximetry [ Bilateral Throughout] 04/19/21 04/19/21 04/19/21 17:39 17:40 17:41 Temperature Pulse Rate 75 71 83 Respiratory Rate Blood Pressure 109/65 100/56 O2 Sat by Pulse 99 Oximetry O2 Sat by Pulse Oximetry [ Bilateral Throughout] 04/19/21 04/19/21 04/19/21 17:43 17:45 17:47 Temperature Pulse Rate 61 56 L 79 Respiratory Rate Blood Pressure 94/50 94/50 93/54 O2 Sat by Pulse 100 Oximetry O2 Sat by Pulse Oximetry [ Bilateral Throughout] 04/19/21 04/19/21 04/19/21 17:49 17:50 17:51 Temperature Pulse Rate 64 59 L 65 Respiratory Rate Blood Pressure 110/58 114/58 O2 Sat by Pulse 100 Oximetry O2 Sat by Pulse Oximetry [ Bilateral Throughout] 04/19/21 04/19/21 04/19/21 17:53 17:55 17:57 Temperature Pulse Rate 56 L 57 L 53 L Respiratory Rate Blood Pressure 123/76 130/76 118/74 O2 Sat by Pulse 100 Oximetry O2 Sat by Pulse Oximetry [ Bilateral Throughout] 04/19/21 04/19/21 04/19/21 18:00 18:03 18:05 Temperature Pulse Rate 61 57 L 58 L Respiratory Rate Blood Pressure 110/59 O2 Sat by Pulse 100 100 Oximetry O2 Sat by Pulse Oximetry [ Bilateral Throughout] 04/19/21 04/19/21 04/19/21 18:08 18:10 18:13 Temperature Pulse Rate 52 L 58 L 51 L Respiratory Rate Blood Pressure 109/59 103/56 O2 Sat by Pulse 100 Oximetry O2 Sat by Pulse Oximetry [ Bilateral Throughout] 04/19/21 04/19/21 04/19/21 18:15 18:18 18:20 Temperature Pulse Rate 56 L 53 L 55 L Respiratory Rate Blood Pressure 102/57 O2 Sat by Pulse 100 99 Oximetry O2 Sat by Pulse Oximetry [ Bilateral Throughout] 04/19/21 04/19/21 04/19/21 18:25 18:30 18:34 Temperature Pulse Rate 78 71 54 L Respiratory Rate Blood Pressure 108/59 O2 Sat by Pulse 100 100 Oximetry O2 Sat by Pulse Oximetry [ Bilateral Throughout] 04/19/21 04/19/21 04/19/21 18:35 18:40 18:42 Temperature Pulse Rate 50 L 56 L 75 Respiratory Rate Blood Pressure 97/54 O2 Sat by Pulse 100 100 Oximetry O2 Sat by Pulse Oximetry [ Bilateral Throughout] 04/19/21 04/19/21 04/19/21 18:45 18:50 18:52 Temperature Pulse Rate 62 53 L 46 L Respiratory Rate Blood Pressure 134/78 O2 Sat by Pulse 71 L 99 Oximetry O2 Sat by Pulse Oximetry [ Bilateral Throughout] 04/19/21 04/19/21 04/19/21 18:55 18:57 19:00 Temperature Pulse Rate 48 L 57 L 54 L Respiratory Rate Blood Pressure O2 Sat by Pulse 87 81 L 92 Oximetry O2 Sat by Pulse Oximetry [ Bilateral Throughout] 04/19/21 04/19/21 04/19/21 19:02 19:05 19:08 Temperature 98.2 F Pulse Rate 49 L 47 L Respiratory Rate Blood Pressure 127/68 O2 Sat by Pulse 99 Oximetry O2 Sat by Pulse Oximetry [ Bilateral Throughout] 04/19/21 04/19/21 04/19/21 19:10 19:11 19:13 Temperature Pulse Rate 80 51 L Respiratory Rate Blood Pressure 121/79 O2 Sat by Pulse 100 94 Oximetry O2 Sat by Pulse 100 Oximetry [ Bilateral Throughout] 04/19/21 04/19/21 04/19/21 19:15 19:20 19:23 Temperature Pulse Rate 60 72 52 L Respiratory Rate Blood Pressure 122/78 O2 Sat by Pulse 100 100 Oximetry O2 Sat by Pulse Oximetry [ Bilateral Throughout] 04/19/21 04/19/21 04/19/21 19:25 19:30 19:32 Temperature Pulse Rate 48 L 49 L 85 Respiratory Rate Blood Pressure 113/78 O2 Sat by Pulse 100 100 Oximetry O2 Sat by Pulse Oximetry [ Bilateral Throughout] 04/19/21 04/19/21 04/19/21 19:35 19:40 19:42 Temperature Pulse Rate 50 L 56 L 51 L Respiratory Rate Blood Pressure 112/74 O2 Sat by Pulse 91 100 Oximetry O2 Sat by Pulse Oximetry [ Bilateral Throughout] 04/19/21 19:45 Temperature Pulse Rate 56 L Respiratory Rate Blood Pressure O2 Sat by Pulse 100 Oximetry O2 Sat by Pulse Oximetry [ Bilateral Throughout] - Exam Breasts: deferred Cardiovascular: Regular rate, Normal S1, Normal S2 Lungs: Clear to auscultation, Normal air movement Abdomen: Present: normal appearance, soft, normal bowel sounds Cervical Dilatation: 6.5 Cervical Effacement Percentage: 80 station: -1 Uterine Contraction Pattern: Irregular Uterine Tone Measurement Phase: Contraction - Labs Labs: Abnormal Labs 04/17/21 18:05 MCH 26 L RDW 15.4 H
--- NOTE | 2021-04-19 19:54 | Event Note ---
Date: 04/19/21 Received call from nursing staff that patient had a prolonged deceleration with abrupt cervical change from 1 cm to approximately 7 cm. Patient had recently had epidural placed. We will stop Pitocin for now. Restart when heart recovers. Anticipate
[2021-04-20] MEDS ORDERED: ePHEDrine SULFATE 50 MG/1 ML INJ ONE ×2 (00:30→12:38)
[2021-04-20] MEDS: ePHEDrine SULFATE 50 MG/1 ML INJ IV PRN ×2 (00:32→00:48)
[2021-04-20] MEDS: fentaNYL-BUPIV 2 MCG/ML-0.125% 200 MCG/100 ML BAG EPIDURAL SCH ×2 (00:56→09:30)
[2021-04-20] MEDS: AMPICILLIN/NS 1 GM/50 ML 1 GM/50 ML BAG IV SCH ×2 (04:06→08:32)
[2021-04-20] MEDS: LACTATED RINGERS 1,000 ML IV SCH (05:10)
--- NOTE | 2021-04-20 07:33 | Progress Note ---
Assessment and Plan - Patient Problems (1) Encounter for induction of labor Current Visit: Yes Status: Acute Plan to address problem: AROM @ 0726, light meconium Increase Pitocin by 2mu as tolerated Reposition q hr with peanut ball Anticipate (2) Morbid obesity Current Visit: Yes Status: Acute (3) Positive GBS test Current Visit: Yes Status: Acute Plan to address problem: Continue GBS prophylaxis per protocol Subjective - Subjective Date of service: 04/20/21 Principal diagnosis: IOL; MO Interval history: Patient is a 25-year-old 1 para 0 who presents for induction secondary to morbid obesity at 39-4/7 weeks. Patient was initially scheduled for evening but was rescheduled due to staffing issues. labs are normal. She is GBS positive. Patient was transferred from her women's [employer] at approximately 30 weeks having received previous care in another city. Patient reports: movement normal, contractions, no new complaints, no loss of fluid, no vaginal bleeding Objective - Vital Signs Vital Signs: Vital Signs - 12hr 04/19/21 04/19/21 04/19/21 19:35 19:40 19:42 Temperature Pulse Rate 50 L 56 L 51 L Blood Pressure 112/74 O2 Sat by Pulse 91 100 Oximetry 04/19/21 04/19/21 04/19/21 19:45 19:50 19:54 Temperature Pulse Rate 56 L 53 L 48 L Blood Pressure 137/78 O2 Sat by Pulse 100 100 Oximetry 04/19/21 04/19/21 04/19/21 19:55 20:00 20:02 Temperature Pulse Rate 62 54 L 61 Blood Pressure 108/66 O2 Sat by Pulse 100 100 Oximetry 04/19/21 04/19/21 04/19/21 20:05 20:10 20:12 Temperature Pulse Rate 49 L 56 L 69 Blood Pressure 112/75 O2 Sat by Pulse 100 100 Oximetry 04/19/21 04/19/21 04/19/21 20:15 20:20 20:21 Temperature Pulse Rate 57 L 71 70 Blood Pressure O2 Sat by Pulse 100 100 84 Oximetry 04/19/21 04/19/21 04/19/21 20:23 20:25 20:27 Temperature Pulse Rate 93 H 74 89 Blood Pressure 127/77 O2 Sat by Pulse 93 85 Oximetry 04/19/21 04/19/21 04/19/21 20:30 20:35 20:40 Temperature Pulse Rate 106 H 55 L 82 Blood Pressure O2 Sat by Pulse 100 100 100 Oximetry 04/19/21 04/19/21 04/19/21 20:44 20:45 20:50 Temperature Pulse Rate 71 53 L 50 L Blood Pressure O2 Sat by Pulse 87 100 100 Oximetry 04/19/21 04/19/21 04/19/21 20:55 21:00 21:01 Temperature Pulse Rate 66 53 L 54 L Blood Pressure 111/72 O2 Sat by Pulse 92 100 Oximetry 04/19/21 04/19/21 04/19/21 21:05 21:09 21:10 Temperature Pulse Rate 73 63 57 L Blood Pressure O2 Sat by Pulse 100 93 100 Oximetry 04/19/21 04/19/21 04/19/21 21:15 21:20 21:25 Temperature Pulse Rate 94 H 59 L 50 L Blood Pressure O2 Sat by Pulse 100 100 100 Oximetry 04/19/21 04/19/21 04/19/21 21:30 21:35 21:38 Temperature Pulse Rate 55 L 61 80 Blood Pressure O2 Sat by Pulse 100 100 94 Oximetry 04/19/21 04/19/21 04/19/21 21:40 21:45 21:50 Temperature Pulse Rate 52 L 64 53 L Blood Pressure O2 Sat by Pulse 100 98 100 Oximetry 04/19/21 04/19/21 04/19/21 21:55 22:00 22:05 Temperature Pulse Rate 62 79 91 H Blood Pressure O2 Sat by Pulse 100 100 100 Oximetry 04/19/21 04/19/21 04/19/21 22:10 22:12 22:15 Temperature Pulse Rate 61 53 L 86 Blood Pressure 106/60 O2 Sat by Pulse 100 100 Oximetry 04/19/21 04/19/21 04/19/21 22:20 22:25 22:30 Temperature Pulse Rate 61 65 55 L Blood Pressure O2 Sat by Pulse 100 100 100 Oximetry 04/19/21 04/19/21 04/19/21 22:35 22:40 22:45 Temperature Pulse Rate 56 L 55 L 92 H Blood Pressure O2 Sat by Pulse 100 100 99 Oximetry 04/19/21 04/19/21 04/19/21 22:50 22:55 23:00 Temperature Pulse Rate 53 L 83 83 Blood Pressure O2 Sat by Pulse 100 100 100 Oximetry 04/19/21 04/19/21 04/19/21 23:05 23:10 23:15 Temperature Pulse Rate 66 99 H 65 Blood Pressure O2 Sat by Pulse 100 100 99 Oximetry 04/19/21 04/19/21 04/19/21 23:20 23:25 23:29 Temperature Pulse Rate 93 H 64 87 Blood Pressure O2 Sat by Pulse 89 99 93 Oximetry 04/19/21 04/19/21 04/19/21 23:30 23:35 23:40 Temperature Pulse Rate 87 79 66 Blood Pressure O2 Sat by Pulse 100 100 100 Oximetry 04/19/21 04/19/21 04/19/21 23:45 23:50 23:55 Temperature Pulse Rate 70 103 H 100 H Blood Pressure O2 Sat by Pulse 100 100 99 Oximetry 04/19/21 04/20/21 04/20/21 23:59 00:00 00:05 Temperature 98.5 F Pulse Rate 83 74 99 H Blood Pressure O2 Sat by Pulse 92 100 98 Oximetry 04/20/21 04/20/21 04/20/21 00:07 00:10 00:15 Temperature Pulse Rate 77 92 H 100 H Blood Pressure O2 Sat by Pulse 93 91 99 Oximetry 04/20/21 04/20/21 04/20/21 00:16 00:20 00:22 Temperature Pulse Rate 104 H 57 L 77 Blood Pressure O2 Sat by Pulse 80 L 100 88 Oximetry 04/20/21 04/20/21 04/20/21 00:25 00:27 00:29 Temperature Pulse Rate 81 62 60 Blood Pressure 79/44 84/48 O2 Sat by Pulse 99 Oximetry 04/20/21 04/20/21 04/20/21 00:30 00:35 00:36 Temperature Pulse Rate 96 H 63 59 L Blood Pressure 116/55 O2 Sat by Pulse 100 100 Oximetry 04/20/21 04/20/21 04/20/21 00:38 00:40 00:45 Temperature Pulse Rate 66 85 79 Blood Pressure 102/50 101/50 O2 Sat by Pulse 100 100 Oximetry 04/20/21 04/20/21 04/20/21 00:46 00:49 00:50 Temperature Pulse Rate 68 82 105 H Blood Pressure 108/55 101/52 O2 Sat by Pulse 100 Oximetry 04/20/21 04/20/21 04/20/21 00:51 00:55 00:57 Temperature Pulse Rate 74 64 63 Blood Pressure 102/52 115/56 115/55 O2 Sat by Pulse 100 Oximetry 04/20/21 04/20/21 04/20/21 01:00 01:05 01:10 Temperature Pulse Rate 65 71 83 Blood Pressure O2 Sat by Pulse 100 100 100 Oximetry 04/20/21 04/20/21 04/20/21 01:14 01:15 01:20 Temperature Pulse Rate 74 81 71 Blood Pressure 107/52 O2 Sat by Pulse 100 100 Oximetry 04/20/21 04/20/21 04/20/21 01:25 01:30 01:35 Temperature Pulse Rate 66 69 67 Blood Pressure O2 Sat by Pulse 100 100 100 Oximetry 04/20/21 04/20/21 04/20/21 01:40 01:45 01:50 Temperature Pulse Rate 76 73 110 H Blood Pressure 101/54 O2 Sat by Pulse 100 100 100 Oximetry 04/20/21 04/20/21 04/20/21 01:55 02:00 02:05 Temperature Pulse Rate 78 73 96 H Blood Pressure O2 Sat by Pulse 100 100 100 Oximetry 04/20/21 04/20/21 04/20/21 02:10 02:15 02:20 Temperature Pulse Rate 78 76 102 H Blood Pressure 113/56 O2 Sat by Pulse 100 99 100 Oximetry 04/20/21 04/20/21 04/20/21 02:25 02:30 02:35 Temperature Pulse Rate 76 71 104 H Blood Pressure O2 Sat by Pulse 100 100 100 Oximetry 04/20/21 04/20/21 04/20/21 02:40 02:45 02:50 Temperature Pulse Rate 86 78 71 Blood Pressure 100/56 O2 Sat by Pulse 100 100 100 Oximetry 04/20/21 04/20/21 04/20/21 02:55 03:00 03:05 Temperature Pulse Rate 68 99 H 77 Blood Pressure O2 Sat by Pulse 100 100 100 Oximetry 04/20/21 04/20/21 04/20/21 03:10 03:15 03:20 Temperature Pulse Rate 116 H 106 H 133 H Blood Pressure O2 Sat by Pulse 100 100 100 Oximetry 04/20/21 04/20/21 04/20/21 03:25 03:30 03:35 Temperature Pulse Rate 114 H 105 H 101 H Blood Pressure O2 Sat by Pulse 100 100 100 Oximetry 04/20/21 04/20/21 04/20/21 03:40 03:45 03:50 Temperature Pulse Rate 92 H 94 H 95 H Blood Pressure O2 Sat by Pulse 100 100 100 Oximetry 04/20/21 04/20/21 04/20/21 03:55 04:00 04:05 Temperature Pulse Rate 109 H 91 H 117 H Blood Pressure O2 Sat by Pulse 100 100 99 Oximetry 04/20/21 04/20/21 04/20/21 04:10 04:12 04:15 Temperature 98.1 F Pulse Rate 106 H 100 H 113 H Blood Pressure 124/73 O2 Sat by Pulse 100 100 Oximetry 04/20/21 04/20/21 04/20/21 04:20 04:25 04:30 Temperature Pulse Rate 116 H 107 H 118 H Blood Pressure O2 Sat by Pulse 100 99 100 Oximetry 04/20/21 04/20/21 04/20/21 04:35 04:40 04:45 Temperature Pulse Rate 97 H 111 H 109 H Blood Pressure O2 Sat by Pulse 100 100 100 Oximetry 04/20/21 04/20/21 04/20/21 04:50 04:55 05:00 Temperature Pulse Rate 105 H 102 H 88 Blood Pressure O2 Sat by Pulse 99 100 100 Oximetry 04/20/21 04/20/21 04/20/21 05:05 05:10 05:14 Temperature Pulse Rate 106 H 101 H 90 Blood Pressure 134/72 O2 Sat by Pulse 100 100 Oximetry 04/20/21 04/20/21 04/20/21 05:15 05:20 05:25 Temperature Pulse Rate 99 H 93 H 92 H Blood Pressure O2 Sat by Pulse 100 100 100 Oximetry 04/20/21 04/20/21 04/20/21 05:30 05:35 05:40 Temperature Pulse Rate 85 96 H 88 Blood Pressure O2 Sat by Pulse 100 100 100 Oximetry 04/20/21 04/20/21 04/20/21 05:45 05:50 05:55 Temperature Pulse Rate 82 93 H 93 H Blood Pressure O2 Sat by Pulse 99 100 100 Oximetry 04/20/21 04/20/21 04/20/21 06:00 06:05 06:10 Temperature Pulse Rate 93 H 98 H 102 H Blood Pressure O2 Sat by Pulse 99 100 100 Oximetry 04/20/21 04/20/21 04/20/21 06:12 06:15 06:20 Temperature Pulse Rate 87 93 H 83 Blood Pressure 135/75 O2 Sat by Pulse 100 100 Oximetry 04/20/21 04/20/21 04/20/21 06:25 06:30 06:35 Temperature Pulse Rate 71 101 H 100 H Blood Pressure O2 Sat by Pulse 100 100 100 Oximetry 04/20/21 04/20/21 04/20/21 06:40 06:45 06:50 Temperature Pulse Rate 101 H 101 H 94 H Blood Pressure O2 Sat by Pulse 100 100 100 Oximetry 04/20/21 04/20/21 04/20/21 06:55 07:00 07:05 Temperature Pulse Rate 103 H 105 H 114 H Blood Pressure O2 Sat by Pulse 100 100 99 Oximetry 04/20/21 04/20/21 04/20/21 07:10 07:14 07:15 Temperature Pulse Rate 107 H 95 H 111 H Blood Pressure 131/77 O2 Sat by Pulse 100 100 Oximetry 04/20/21 04/20/21 04/20/21 07:20 07:25 07:30 Temperature Pulse Rate 111 H 113 H 110 H Blood Pressure O2 Sat by Pulse 100 100 99 Oximetry - Exam Breasts: deferred Cardiovascular: Regular rate Lungs: Normal air movement Abdomen: Present: other (gravid) FHR: category 1 Uterine Contraction Monitor Mode: External Cervical Dilatation: 9.5 (vertex) Cervical Effacement Percentage: 90 (Pitocin @ 6mu/min) station: 0 Uterine Contraction Frequency (min): 4-6 Uterine Contraction Pattern: Irregular Uterine Tone Measurement Phase: Resting Uterine Contraction Intensity: Moderate Extremities: edema Deep Tendon Reflex Grade: Normal +2 - Labs Labs: Abnormal Labs 04/17/21 18:05 MCH 26 L RDW 15.4 H
[2021-04-20] MEDS ORDERED: BUPIVACAINE/PF (0.25%) 2.5 MG/ML 10 ML VIAL INFILTRATI ONE (10:36)
--- NOTE | 2021-04-20 10:56 | Event Note ---
Date: 04/20/21 Received call from RN stating that pt and partner are becoming very anxious, requesting C/S. Maternal and wellbeing are good. Cervical exam has not changed since 725 this AM. Consulted with Dr. Quinn, decision made to proceed with C/S.
[2021-04-20] MEDS ORDERED: FAMOTIDINE 20 MG/2 ML INJ IV ONE (11:22)
[2021-04-20] MEDS ORDERED: BICITRA ORAL LIQD 30ML PO SCH (11:22)
[2021-04-20] MEDS ORDERED: METOCLOPRAMIDE 10 MG/2 ML INJ IV ONE (11:22)
[2021-04-20] MEDS ORDERED: LACTATED RINGERS 1,000 ML IV SCH (11:30)
[2021-04-20] MEDS ORDERED: OXYTOCIN DRIP 30 UNITS/500 ML BAG IV SCH ×2 (12:00→16:00)
[2021-04-20] MEDS ORDERED: ceFAZolin/Water 2 GM/20 ML 2 GM/20 ML SYRINGE IV NR (12:00)
[2021-04-20] MEDS ORDERED: ceFAZolin/STERILE WATER 2 GM/20 ML SYRINGE IV ONE (12:33)
[2021-04-20] MEDS ORDERED: dexAMETHasone 20 MG/5 ML VIAL ONE (12:38)
[2021-04-20] MEDS ORDERED: LIDOCAINE 2%/EPINEPHRINE 1:200,000 VIAL (20 ML) INFILTRATI ONE (12:38)
[2021-04-20] MEDS ORDERED: LACTATED RINGERS 1,000 ML ONE (12:38)
[2021-04-20] MEDS ORDERED: SODIUM BICARB 8.4% 50 MEQ/50 ML VIAL IV ONE (12:38)
[2021-04-20] MEDS ORDERED: KETOROLAC 30 MG/1 ML INJ ONE (12:38)
[2021-04-20] MEDS ORDERED: BUPIVACAINE/PF (0.25%) 2.5 MG/ML 30 ML VIAL INFILTRATI ONE (12:38)
[2021-04-20] MEDS ORDERED: SODIUM CHLORIDE 0.9% IRR 1,500 ML BOTTLE IR ONE (12:40)
[2021-04-20] MEDS ORDERED: WATER FOR IRRIG STERILE 1,500 ML BOTTLE IR ONE (12:40)
--- NOTE | 2021-04-20 13:49 | Procedure Note ---
OB Delivery Note - Delivery Date of Delivery: 04/20/21 Surgeon: BERNADETTE FERRARI Estimated blood loss: other (pending) - Section Preop diagnosis: arrest of dilation Postop diagnosis: same section procedure: section, primary low transverse Disposition: PACU Complications: none Narrative: Please see operative report - A at 1 minute: 8 at 5 minutes: 9 Gender: Male (2950g (6lb 8oz) @ 1251 pm)
--- NOTE | 2021-04-20 13:55 | Operative Report ---
Operative Report Operative Report: Date of procedure: March 20, 2020 Preoperative diagnosis: 1) IUP at 40w1d 2) Arrest of Dilation 3) Morbid Obesity BMI 46 Postoperative diagnosis: Same 4) Cephalopelvic Disproportion 5) Uterine Atony Procedure: Primary low transverse section Surgeon: Joan Quinn M.D. Anesthesia: Regional Findings: 1) Viable male , Apgars 8 and 9, weight 2950 g, (6 lb 8 oz) in cephalic presentation. Thin meconium. 2) Normal-appearing uterus ovaries and tubes Estimated blood loss: 1271 mL IV fluids:2000 mL Urine output: 100 mL, clear at the end of the procedure Drains: Kirk to gravity Specimens: None Complications:None. Counts correct x 3 Disposition: Stable to PACU Indication for procedure: Pt is a 25 year old primigravida at 40wks who underwent induction for morbid obesity and progressed to 9 cm and arrested there for more than four hours despite adequate contractility. The decision was made to proceed with section. Operation in detail: After the risks, benefits, alternatives and complications were explained to the patient she gave informed consent for the procedure. She was subsequently taken to the operating room where regional anesthesia was noted to be adequate. She was placed in the dorsal supine position with leftward tilt and prepped and draped in a normal sterile fashion. heart tones were noted prior to incision. A timeout was performed. A Pfannenstiel skin incision was made with the knife and carried down to the layer of the fascia with the Bovie. The fascia was incised in the midline and the fascial incision was extended bilaterally with the Bovie. The fascial incision was then stretched. The rectus muscles were then in the midl ine and partially transected for adequate visualization. The peritoneum was then entered bluntly. The peritoneal incision was extended with good visualization of the bladder. The peritoneal incision was then stretched. An Mitchel retractor was placed. The bladder blade was then placed. A transverse incision was made in the lower uterine segment with a knife and extended bilaterally with the bandage scissors. Amniotomy was performed with egress of meconium stained fluid. head delivered with ease, followed by shoulders and body. bulb suctioned at delivery. Cord clamped and cut. handed to NICU staff in attendance. The placenta was then delivered manually. The uterus was then exteriorized and cleared of all clots and debris. The hysterotomy was then reapproximated with 0 Monocryl in a running locked fashion. A second layer of the same suture was used in imbricating fashion. The hysterotomy was inspected and hemostasis was noted. The gutters were irrigated and cleared of all clots and debris. The uterus was placed back into the peritoneal cavity. The hysterotomy was again inspected and noted to be hemostatic. Surgicel was placed over the hysterotomy. The Mitchel retractor was removed. The peritoneum was reapproximated wit 0 Monocryl in a running fashion incorporating the rectus muscles. Surgicel was placed over the rectus muscles. The fascia was reapproximated with 0 Vicryl in a running fashion. The subcutaneous tissue was reapproximated with 3-0 Vicryl in a running fashion. The skin was reapproximated with 3-0 Monocryl in a subcuticular fashion. The incision was then covered with steri strips and a pressure dressing. The procedure was then ended. The patient tolerated the procedure well and was taken to the PACU in stable condition. All instrument, lap, and needle counts were correct 3. After the procedure, the pt experienced uterine atony and was given Methergine 0.2 mg IM.
[2021-04-20] MEDS ORDERED: oxyCODONE /ACETAMINOPHEN 5-325MG TAB PO PRN (16:00)
[2021-04-20] MEDS ORDERED: ceFAZolin/NS 1 GM/50 ML 1 GM/50 ML BAG IV SCH (16:00)
[2021-04-20] MEDS ORDERED: MORPHINE 2 MG/1 ML INJ IV PRN (16:00)
[2021-04-20] MEDS ORDERED: SIMETHICONE 80 MG CHEW TAB PO PRN (16:00)
[2021-04-20] MEDS ORDERED: WITCH HAZEL/ GLYCERIN PAD TP PRN (16:00)
[2021-04-20] MEDS ORDERED: NALOXONE 0.4 MG/1 ML INJ IV PRN (16:00)
[2021-04-20] MEDS ORDERED: LANOLIN/ZINC/DIMETHICONE (LANSINOH) 7 GM TP PRN (16:00)
[2021-04-20] MEDS ORDERED: MORPHINE 4 MG/1 ML INJ IV PRN (16:00)
[2021-04-20] MEDS ORDERED: ONDANSETRON 4 MG/2 ML INJ IV PRN (16:00)
[2021-04-20] MEDS: D5W/LACTATED RINGERS 1,000 ML IV SCH (18:10)
[2021-04-20] MEDS: ceFAZolin/NS 1 GM/50 ML 1 GM/50 ML BAG IV SCH (19:45)
[2021-04-20] MEDS: KETOROLAC 30 MG/1 ML INJ IV SCH (19:47)
[2021-04-21 02:11] LABS: Hematocrit 31.4 % (30.3-42.9); Hemoglobin 10.2 gm/dl (10.1-14.3)
[2021-04-21] MEDS: D5W/LACTATED RINGERS 1,000 ML IV SCH (02:28)
[2021-04-21] MEDS: ceFAZolin/NS 1 GM/50 ML 1 GM/50 ML BAG IV SCH (03:46)
[2021-04-21] MEDS: KETOROLAC 30 MG/1 ML INJ IV SCH ×2 (03:47→10:06)
--- NOTE | 2021-04-21 08:41 | Progress Note ---
Assessment and Plan - Patient Problems (1) Morbid obesity Current Visit: Yes Status: Acute (2) Status post primary low transverse section Current Visit: Yes Status: Acute Plan to address problem: Continue routine PP orders Keep dressing clean and dry, remove dressing on POD#2 Anticipate d/c home in 24-48 hr if stable Subjective - Subjective Date of service: 04/21/21 Principal diagnosis: S/P primary C/S; POD#1 Interval history: Patient is a 25-year-old 1 para 0 who presents for induction secondary to morbid obesity at 39-4/7 weeks. Patient was initially scheduled for evening but was rescheduled due to staffing issues. labs are normal. She is GBS positive. Patient was transferred from her women's [employer] at approximately 30 weeks having received previous care in another city. Patient reports: appetite normal, voiding normally, pain well controlled (with medications), flatus, ambulating normally, no bowel movement : doing well, bottle feeding (and ) Objective - Vital Signs Latest vital signs: Vital Signs Temp Pulse Resp BP BP Pulse Ox Pulse Ox 04/21/21 07:20 98.0 F 60 18 105/56 100 04/21/21 04:30 98.6 F 72 18 115/78 04/21/21 03:47 18 04/21/21 00:49 20 04/21/21 00:45 98.0 F 56 L 18 106/57 100 04/20/21 20:17 98.0 F 54 L 18 121/56 99 04/20/21 20:00 98 04/20/21 19:47 20 04/20/21 17:00 98.1 F 04/20/21 15:10 97.3 F L 53 L 18 142/87 100 100 04/20/21 14:45 97.7 F 53 L 13 128/44 100 04/20/21 14:30 56 L 20 129/63 100 04/20/21 14:15 57 L 25 H 124/63 100 04/20/21 14:10 64 14 112/43 100 04/20/21 14:05 60 16 115/67 100 04/20/21 14:00 57 L 15 122/65 100 04/20/21 13:54 97.0 F L 61 15 112/68 100 04/20/21 12:00 59 L 105/55 100 04/20/21 11:55 57 L 100 04/20/21 11:50 58 L 100 04/20/21 11:45 52 L 100 04/20/21 11:43 51 L 91/50 04/20/21 11:40 57 L 99 04/20/21 11:35 56 L 99 04/20/21 11:30 57 L 99 04/20/21 11:28 62 91/52 04/20/21 11:25 56 L 100 04/20/21 11:20 59 L 100 04/20/21 11:15 62 100 04/20/21 11:14 54 L 91/54 04/20/21 11:10 54 L 100 04/20/21 11:05 62 100 04/20/21 11:00 62 100 04/20/21 10:55 65 100 04/20/21 10:50 65 100 04/20/21 10:45 68 100 04/20/21 10:40 89 100 04/20/21 10:39 78 88 04/20/21 10:35 88 100 04/20/21 10:30 77 100 04/20/21 10:25 70 100 04/20/21 10:20 119 H 100 04/20/21 10:15 107 H 100 04/20/21 10:13 112 H 141/98 04/20/21 10:10 103 H 100 04/20/21 10:05 75 84 04/20/21 10:00 101 H 100 04/20/21 09:58 106 H 133/87 04/20/21 09:55 91 H 100 04/20/21 09:50 114 H 100 04/20/21 09:45 125 H 119/58 100 04/20/21 09:40 122 H 100 04/20/21 09:35 105 H 100 04/20/21 09:30 87 100 04/20/21 09:28 96 H 120/61 04/20/21 09:25 91 H 100 04/20/21 09:20 89 100 04/20/21 09:15 105 H 98 04/20/21 09:10 103 H 100 04/20/21 09:05 101 H 100 04/20/21 09:00 98 H 100 04/20/21 08:58 100 H 128/69 04/20/21 08:55 104 H 100 04/20/21 08:50 95 H 100 04/20/21 08:45 97 H 100 04/20/21 08:44 95 H 131/69 04/20/21 08:40 101 H 100 Intake and Output 04/20/21 04/21/21 04/21/21 23:59 07:59 15:59 Intake Total 740 1500 Output Total 1600 700 Balance -860 800 Intake: IV 50 1000 ANCEF/NS 1 GM/50 ML 1 gm 50 In 50 ml @ 100 mls/hr IV Q8H NAVEED Rx#:[id number] D5lr 1,000 ml @ 125 mls/ 1000 hr IV DIRECT NAVEED Rx#: [id number] Oral 690 200 Intake, Free Water 300 Output: Urine 1600 700 Indwelling Catheter 1600 100 Void 600 Other: Total, Intake Amount 240 200 Total, Output Amount 700 600 # Voids Void 1 - Exam Breasts: Present: normal Cardiovascular: Present: Normal S1 Lungs: Present: Normal air movement Abdomen: Present: soft, tenderness Uterus: Present: firm, fundal height below umbilicus (U-2) Extremities: Present: normal Deep Tendon Reflex Grade: Normal +2 Incision: Present: dressed (no shawdow drainge or bleeding noted)
[2021-04-21] MEDS: FERROUS SULFATE 325 MG TAB PO SCH (10:06)
[2021-04-21] MEDS: IBUPROFEN 800 MG TAB PO PRN (15:46)
[2021-04-21] MEDS ORDERED: TETANUS,DIPH,PERTUSS(ACELL) VACCINE 0.5 ML SYRINGE IM ONE (16:00)
[2021-04-21] MEDS ORDERED: MEASLES, MUMPS & RUBELLA 12,500 UNIT/0.5 ML VACCINE SUB-Q ONE (16:00)
[2021-04-22] MEDS: IBUPROFEN 800 MG TAB PO PRN ×2 (06:03→12:55)
--- NOTE | 2021-04-22 10:46 | Post Anesthesia Evaluation ---
- Post Anesthesia Evaluation Patient Participated: Yes Airway Patent: Yes Stable Respiratory Function: Yes Nausea/Vomiting: No Temp > 96.8F: Yes Pain Manageable: Yes Adequeate Hydration: Yes Anesthesia Complications: No Block Receding Appropriately: Yes
[2021-04-22] MEDS: FERROUS SULFATE 325 MG TAB PO SCH (11:19)
--- NOTE | 2021-04-22 12:55 | Progress Note ---
Assessment and Plan A: POD#2 s/p C/S at term P: Continue with routine care until discharge this afternoon. Subjective - Subjective Date of service: 04/22/21 Principal diagnosis: S/P primary C/S; POD#2 Interval history: POD#2 s/p C/S at term. Patient is feeling well, reports decreasing lochia, adequate pain control, +flatus and +BM. She is requesting to go home today. Patient reports: appetite normal, voiding normally, pain well controlled, flatus, bowel movement, ambulating normally : doing well Objective - Vital Signs Latest vital signs: Vital Signs Temp Pulse Resp BP Pulse Ox Pulse Ox 04/22/21 08:00 98 04/22/21 07:36 97.9 F 53 L 20 111/73 100 04/22/21 06:53 18 04/22/21 06:03 18 04/22/21 02:33 18 04/22/21 01:33 18 04/22/21 00:34 99.0 F 66 20 108/65 100 04/21/21 22:32 99 04/21/21 15:25 98.1 F 77 18 104/60 100 Intake and Output 04/21/21 04/22/21 04/22/21 23:59 07:59 15:59 Intake Total 300 360 480 Balance 300 360 480 Intake: Oral 300 120 Intake, Free Water 360 360 Other: Total, Intake Amount 300 120 # Voids Void 1 2 1
--- NOTE | 2021-04-22 13:00 | Discharge Summary ---
Providers - Providers Date of Admission: 04/17/21 15:21 Date of discharge: 04/22/21 Attending physician: LUCIE JAMES 04/20/21 15:30 Consult to Control Room Technician [CONS] Routine Reason For Exam: Primary care physician: S[employer]IOR [employer]ROL [employer] Hospitalization Reason for admission: IUP at term Delivery: Procedure: section, primary low transverse Episiotomy: none Incision: normal, dry, intact Other procedures: none complications: none Discharge diagnosis: IUP at term delivered baby: male Condition at discharge: Good Disposition: 01 HOME / SELF CARE / HOMELESS Plan - Discharge Medications Prescriptions: oxyCODONE /ACETAMINOPHEN [Percocet 5/325] 1 tab PO Q6HR PRN #30 tablet PRN Reason: Pain - Provider Discharge Summary Activity: routine, no sex for 6 weeks, no heavy lifting 4 weeks, no strenuous exercise Diet: routine Instructions: routine Additional instructions: [] Smoking cessation referral if applicable(refer to patient education folder for contact #) [] Refer to [facility]'s [facility] Booklet Call your doctor immediately for: * Fever > 100.5 * Heavy vaginal bleeding ( >1 pad per hour) * Severe persistent headache * Shortness of breath * Reddened, hot, painful area to leg or breast * Drainage or odor from incision. * Keep incision clean and dry at all times and follow doctor's instructions regarding bathing/showering - Follow up plan Follow up: BERNADETTE FERRARI MD [Staff Physician] - 14 Days Forms: [facility] Discharge Summary
[2021-04-22] MEDS ORDERED: MEASLES, MUMPS & RUBELLA 12,500 UNIT/0.5 ML VACCINE SUB-Q ONE (14:00)
[2021-04-22 14:22] VITALS: BP 110/68
== END 2021-04-22 15:05 | disposition home or self-care (01) | DRG 766 ==
LOC: LD 15:21 → APU 04-20 12:11 → OB 04-20 15:12
PROVIDERS: ADMIT Obstetrics & Gynecology; ATTEND Obstetrics & Gynecology
PROC: 10D00Z1 Extraction of Products of Conception, Low, Open Approach (ICD-10-PCS; principal; 2021-04-20)
PROC: 3E0R3BZ Introduction of Anesthetic Agent into Spinal Canal, Percutaneous Approach (ICD-10-PCS; 2021-04-20)
PROC: 00HU33Z Insertion of Infusion Device into Spinal Canal, Percutaneous Approach (ICD-10-PCS; 2021-04-20)
PROC: 10907ZC Drainage of Amniotic Fluid, Therapeutic from Products of Conception, Via Natural or Artificial Opening (ICD-10-PCS; 2021-04-20)
PROC: 3E0234Z Introduction of Serum, Toxoid and Vaccine into Muscle, Percutaneous Approach (ICD-10-PCS; 2021-04-22)
DX: O77.0 Labor and delivery complicated by meconium in amniotic fluid (principal); Z3A.39 39 weeks gestation of pregnancy; Z20.822 Contact with and (suspected) exposure to COVID-19; Z37.0 Single live birth; O99.214 Obesity complicating childbirth; E66.01 Morbid (severe) obesity due to excess calories; O62.2 Other uterine inertia; Z23 Encounter for immunization; O99.824 Streptococcus B carrier state complicating childbirth
CPT/HCPCS: 36415; 85014; 85018; 85027; 86592; 86850; 86900; 86901; 90471; 90707; 99211; G0378; J3490; J7060; G0463; J0290; J0595; J0690; J1100; J1885; J2210; J2270; J2590; J2765; J7120; J7121; U0003